=== PATIENT | male | born 1950 | race Caucasian/White ===

== ENCOUNTER 2022-04-02 12:03 | Emergency (ER) | payer MEDICARE ==
[2022-04-02] MEDS ORDERED: SODIUM CHLORIDE 0.9% 1,000 ML IV STA (15:11)
[2022-04-02 15:15] VITALS: BP 140/74
--- NOTE | 2022-04-02 15:17 | ED Physician Documentation ---
History of Present Illness - Stated complaint Stated Complaint: FACE,KNEE,ELBOW INJ/FALL - Chief complaint Chief Complaint: Neuro - History obtained from History obtained from: Patient, Family - Additonal information Additional information: The patient comes to the emergency department chief complaint of fall, head injury, and loss of consciousness yesterday. He states he had been eating ice cream and lunch and walked out at the restaurant and stepped off a step. He states it was not a very tall step and he does not remember exactly what happened, but that he fell to the ground and hit his face. states she was right in front of the patient and did not see him fall, but that immediately after he fell, and she saw that he was awake with his eyes open but seemed dazed. The patient does not remember having any chest pain or shortness of breath. No palpitations. He states that after he began to wake up a little better, he felt very emotional and felt ready to cry.He was also a little nauseated. After that, however, he was able to walk normally and otherwise seem to be his normal self. He is here because his is convinced him to come in and get "checked out". The patient normally has had heart rate in the upper 40s to low 50s for years and states that he generally does not have any symptoms with this. He does not take any beta-blockers. Patient states he has been dri nking plenty of water. He did not have any focal neurologic deficits. No other complaints at this time. Review of Systems Ten Systems: 10 systems reviewed and negative Constitutional: reports: Reviewed and negative Eyes: reports: Reviewed and negative Ears: reports: Reviewed and negative Nose: reports: Reviewed and negative Throat: reports: Reviewed and negative Cardiac: reports: Reviewed and negative Respiratory: reports: Reviewed and negative GI: reports: Reviewed and negative : reports: Reviewed and negative Skin: reports: Reviewed and negative Musculoskeletal: reports: Reviewed and negative Neurologic: reports: Syncope, Head injury, LOC Psychiatric: reports: Reviewed and negative Endocrine: reports: Reviewed and negative Immunocompromised: reports: Reviewed and negative PD PAST MEDICAL HISTORY - Past Medical History Past Medical History: Yes Neuro: Migraines, Peripheral neuropathy, Tremors Endocrine/Autoimmune: Type 2 diabetes Psych: Depression, Anxiety Musculoskeletal: Chronic back pain - Past Surgical History Past Surgical History: Yes Ortho: Spine surgery - Present Medications Home Medications: Ambulatory Orders Medication Instructions Recorded Confirmed Atorvastatin [Lipitor] 20 mg PO DAILY 04/02/22 04/02/22 Fluoxetine HCl [Prozac] 20 mg PO DAILY 04/02/22 04/02/22 QUEtiapine [SEROquel] 50 mg PO QPM 04/02/22 04/02/22 Rizatriptan Benzoate [Rizatriptan] 10 mg PO PRN PRN 04/02/22 04/02/22 Trazodone HCl 100 mg PO DAILY PM 04/02/22 04/02/22 metFORMIN [Glucophage] 500 mg PO DAILY 04/02/22 04/02/22 - Allergies Allergies/Adverse Reactions: Allergies Allergy/AdvReac Type Severity Reaction Status Date / Time Novicain Allergy Unknown Uncoded 04/02/22 12:18 - Social History Does the pt smoke?: No Smoking Status: Never smoker PD ED PE NORMAL - Vitals Vital signs reviewed: Yes - General General: Alert and oriented X 3, No acute distress, Well developed/nourished - HEENT HEENT: PERRL, EOMI, Moist mucous membranes, Other (Small abrasions to midline forehead and nasal bridge. No bruising or swelling.) - Neck Neck: Supple, no meningeal sign, Other (Mild bony tenderness in the midline C- spine diffusely without step-off.) - Cardiac Cardiac: RRR, No murmur, Strong equal pulses - Respiratory Respiratory: No respiratory distress, Clear bilaterally - Abdomen Abdomen: Soft, Non tender, Non distended - Derm Derm: Normal color, Warm and dry, No rash, Other (Abrasions as above) - Extremities Extremities: No deformity, No tenderness to palpate, Normal ROM s pain - Neuro Neuro: Alert and oriented X 3, melter clerk 2-12 intact, No motor deficit, No sensory deficit, Normal speech - Psych Psych: Normal mood, Normal affect Results - Vitals Vitals: Oxygen O2 Source Room air - EKG (time done) 1525 Rate: Rate (enter#) (48) Rhythm: Sinus bradycardia [place]: LAD Intervals: Normal PA QRS: Normal Ischemia: Normal ST segments Compare to prior EKG: Old EKG unavailable Computer interpretation: Agree with computer - Labs Labs: Laboratory Tests 04/02/22 15:18 Troponin I High Sens 4.7 - Rads (name of study) CT head Radiology: Final report received (neg) CT C-spine Radiology: Final report received (neg) PD MEDICAL DECISION MAKING - ED course Complexity details: reviewed results, re-evaluated patient, considered differential, d/w patient ED course: The patient was worked up with labs, EKG, and CT scans of the head and C-spine. Work-up was negative. We have discussed the usual indications for follow-up and return. Departure - Departure Disposition: 01 Home, Self Care Clinical Impression: Fall Qualifiers: Encounter type: initial encounter Qualified Code(s): W19.XXXA - Unspecified fall, initial encounter Closed head injury Qualifiers: Encounter type: initial encounter Qualified Code(s): S09.90XA - Unspecified injury of head, initial encounter Syncope Qualifiers: Syncope type: unspecified Qualified Code(s): R55 - Syncope and collapse Condition: Stable Instructions: ED Head Injury Closed Comments: Your labs, EKG, and CTs of the head and neck look good. It is not clear whether you tripped and fell and do not remember the fall because you hit your head, or whether you fainted first and then fell. Since you are feeling well before and after, it is most likely that you hit your head, causing a concussion and some amnesia to the events. You may feel a little "off" for the next week, which is normal after concussion. Specifically, you may feel tired, nauseated, or have a headache. These things are normal, but if they become noticeably a lot worse, you should be reevaluated. Please follow-up with your doctor regarding any further concerns about your medications or your heart. There is no evidence of an acute cardiac emergency today. Discharge Date/Time: 04/02/22 19:12
--- NOTE | 2022-04-02 18:08 | CT Report ---
PROCEDURE: HEAD WO INDICATIONS: fall/loc/head injury TECHNIQUE: Noncontrast 4.5 mm thick angled axial sections acquired from the foramen magnum to the vertex. For r adiation dose reduction, the following was used: automated exposure control, adjustment of mA and/or kV according to patient size. COMPARISON: None. FINDINGS: Image quality: Excellent. CSF spaces: Basal cisterns are patent. No extra-axial fluid collections. Ventricles are normal in size and shape. Brain: No midline shift. No intracranial masses or hemorrhage. No mass effect. [place]ila-white matter i nterface is normal. There cerebral volume loss for age with resultant ventricular and sulcal prominen ce. There are periventricular and deep white matter chronic small vessel ischemic changes. Atheroscle rotic calcifications are noted in the intracranial segments of the bilateral internal carotid arterie s. Skull and face: Calvarium and visualized facial bones are intact, without suspicious lesions. Sinuses: There is opacification of the right mastoid air cells. No evidence for osseous erosion/dest ruction of the air cells. No overlying osseous erosions or soft tissue changes. Remaining visualized paranasal sinuses and mastoids are clear. IMPRESSION: 1. CT head without acute intracranial abnormalities or acute calvarial fractures. 2. Opacification of the right mastoid air cells likely related to chronic mastoiditis. 3. Age-related senescent changes and sequela of chronic small vessel ischemic disease. Reviewed by: Sudeep Lentz MD on 04/02/2022 6:07 PM PDT Approved by: Sudeep Lentz MD on 04/02/2022 6:07 PM PDT Station ID: [id number]
--- NOTE | 2022-04-02 18:11 | CT Report ---
PROCEDURE: CERVICAL SPINE WO INDICATIONS: fall/pain TECHNIQUE: Noncontrast 3 mm thick sections acquired from the skull base to the T4 level. Sagittal and coronal r eformats were then constructed. For radiation dose reduction, the following was used: automated exp osure control, adjustment of mA and/or kV according to patient size. COMPARISON: None. FINDINGS: Image quality: Excellent. Bones: No acute fractures or dislocations. Visualized superior ribs are intact. Craniocervical junc tion is intact. C1-C2 relationship is maintained. No acute compression fractures. Straightening of no rmal cervical lordosis. Moderate multilevel cervical spondylosis seen throughout the imaged spine. Fi ndings are most severe at C6-7 and C7-T1 where there is disc space loss, degenerative endplate change s, and prominent endplate osteophyte formation. Associated facet arthropathy also noted at this level . Soft tissues: Prevertebral soft tissues are normal in thickness. No paravertebral hematomas. No ap ical pneumothoraces. IMPRESSION: CT cervical spine without acute fracture or traumatic malalignment. Straightening of cervical lordosis likely related to patient positioning and/or concurrent muscle spa sms. Moderate multilevel cervical spondylosis most severe at C6-7 and C7-T1. Reviewed by: Sudeep Lentz MD on 04/02/2022 6:10 PM PDT Approved by: Sudeep Lnetz MD on 04/02/2022 6:10 PM PDT Station ID: [id number]
== END 2022-04-02 19:12 | disposition home or self-care (01) ==
LOC: ED 12:03
DX: S09.90XA Unspecified injury of head, initial encounter (principal); W10.9XXA Fall (on) (from) unspecified stairs and steps, initial encounter; E11.42 Type 2 diabetes mellitus with diabetic polyneuropathy; Z79.84 Long term (current) use of oral hypoglycemic drugs
CPT/HCPCS: 36415; 84484; 93005; 99284